=== PATIENT | female | born 1960 | race American Indian/Alaskan Native ===

== ENCOUNTER 2019-09-22 09:29 | Outpatient (CLI) | payer BC ==
--- NOTE | 2019-09-25 11:03 | Mammography Report ---
DIGITAL SCREENING MAMMOGRAM WITH CAD, 09/22/2019 INDICATION: Routine screening mammography. TECHNIQUE: Digital bilateral 2D mammography was obtained in the craniocaudal and mediolateral obliq ue projections. This examination was interpreted with the benefit of Computer-Aided Detection analysi s. COMPARISON: None available. However, she indicated that she had a prior mammogram at [facility]. FINDINGS: Breast Density: The breasts are heterogeneously dense, which may obscure small masses. Bilateral parenchymal asymmetries require comparison with the prior mammogram or additional imaging. No architectural distortion or suspicious calcifications. IMPRESSION: Comparison with the previous mammogram is recommended. We will attempt to obtain a prior mammogram for comparison. If we do not obtain a prior mammogram within 30 days, a revised report will be issued recommending a recall for additional imaging. Please be advised that the patient should no t schedule an appointment for return until adequate time (at least 2 weeks) has passed for us to obta in the prior mammogram. Follow up recommendation: Obtain prior study for comparison Category 0: Incomplete. Needs additional imaging evaluation and/or prior mammograms for comparison. A "normal" or negative report should not discourage follow up or biopsy of a clinically significant f inding. A written summary of these findings will be mailed to the patient. The patient will be entered into a mammography reporting system which will generate a reminder letter for the patient's next appointmen t at the appropriate interval. The [employer] recommends yearly mammograms starting at age 40 and continuing as l derek as a woman is in good health. Breast MRI is recommended for women with an approximate 20-25% or greater lifetime risk of breast cancer, including women with a strong family history of breast or ova jazmin cancer or who have been treated for Hodgkin's disease. Signer Name: Mikael Gould MD Signed: 09/25/2019 10:58 AM Workstation Name: [id number]
== END 2019-09-22 09:30 | disposition home or self-care (01) ==
LOC: MAMMO 09:29
PROVIDERS: ATTEND Internal Medicine
DX: Z12.31 Encounter for screening mammogram for malignant neoplasm of breast (principal)
CPT/HCPCS: 77067

== ENCOUNTER 2019-10-16 12:42 | Emergency (ER) | payer BC ==
--- NOTE | 2019-10-16 13:32 | Event Note ---
ED Screening Note ED Screening Note: substernal CP that began yesterday states that it is intermittent, sharp pain no cough no nausea, vomiting no fever no SOB PMHx HTN, depression allergy: nyquil former smoker This initial assessment/diagnostic orders/clinical plan/treatment(s) is/are subject to change based on patients health status, clinical progression and re- assessment by fellow clinical providers in the ED. Further treatment and workup at subsequent clinical providers discretion. Patient/guardian urged not to elope from the ED as their condition may be serious if not clinically assessed and managed. Initial orders include: CP protocol
[2019-10-16 14:34] LABS: Basophils % (Auto) 0.5 % (0.0-1.8); Eosinophils # (Auto) 0.1 K/mm3 (0.0-0.4); Eosinophils % (Auto) 1.3 % (0.0-4.3); Hematocrit 41.3 % (30.3-42.9); Hemoglobin 13.4 gm/dl (10.1-14.3); Lymphocytes # (Auto) 2.4 K/mm3 (1.2-5.4); Mean Corpuscular HGB Conc 33 % (30-34); Mean Corpuscular Volume 83 fl (79-97); Monocytes # (Auto) 0.7 K/mm3 (0.0-0.8); Platelet Count 349 K/mm3 (140-440); Red Blood Count 4.99 M/mm3 (3.65-5.03); Red Cell Distribution Width 15.7 % (13.2-15.2)
--- NOTE | 2019-10-16 14:42 | XRay Report ---
CHEST 2 VIEWS INDICATION / CLINICAL INFORMATION: CP. COMPARISON: 07/24/2018 FINDINGS: SUPPORT DEVICES: None. HEART / MEDIASTINUM: No significant abnormality. LUNGS / PLEURA: No significant pulmonary or pleural abnormality. .No pneumothorax. ADDITIONAL FINDINGS: No significant additional findings. IMPRESSION: 1. No acute findings. Signer Name: Deacon Felix MD Signed: 10/16/2019 2:37 PM Workstation Name: [id number]
[2019-10-16 14:53] LABS: Alanine Aminotransferase 24 units/L (7-56); Albumin 4.5 g/dL (3.9-5); BUN/Creatinine Ratio 19; Blood Urea Nitrogen 15 mg/dL (7-17); Calcium 9.8 mg/dL (8.4-10.2); Hemolysis Index 41
--- NOTE | 2019-10-16 14:57 | Emergency Department Report ---
ED Chest Pain HPI - General Chief Complaint: Chest Pain Stated Complaint: CHEST PAIN Time Seen by Provider: 10/16/19 13:29 Source: patient Mode of arrival: Ambulatory Limitations: No Limitations - History of Present Illness Initial Comments: 58 yo female woke with chest pain started this morning at 8:30 AM. Midsternal chest pain non radiating. Denies nausea,vomiting, and diaphoresis. She's had hx of chest pain x 1 month. Stress test done on 10/09/19. MD Complaint: chest pain -: Sudden, hour(s) (at 8:30 am) Onset: awoke with symptoms Pain Location: substernal Pain Radiation: none Severity: mild Severity scale (0 -10): 3 Quality: sharp Consistency: intermittent Improves With: other (aspirin 325 mg) Worsens With: nothing re: denies: nausea, vomting, diaphoresis, dyspnea, sense of impending doom Other Symptoms: denies: cough, leg swelling, palpitations Treatments Prior to Arrival: aspirin Aspirin use within the Past 7 Days: (1) Yes (daily aspirin 325 mg) - Related Data On Oral Contraceptives: No Home Medications Medication Instructions Recorded Confirmed Last Taken Verapamil ER [Calan Sr] 240 mg PO QDAY 07/26/18 07/26/18 Unknown Previous Rx's Medication Instructions Recorded Last Taken Type Aspirin 325 mg PO QDAY #30 tablet 07/26/18 Unknown Rx AtorvaSTATin [Lipitor] 40 mg PO QHS #30 tablet 07/26/18 Unknown Rx Butalb/Acetamin/Caff 50-325-40 1 tab PO Q4H PRN #30 tablet 07/26/18 Unknown Rx [Fioricet 50-325-40] Famotidine [Pepcid] 20 mg PO BID #60 tablet 07/26/18 Unknown Rx oxyCODONE /ACETAMINOPHEN [Percocet 1 tab PO Q6H PRN #12 tablet 07/26/18 Unknown Rx 5/325 mg] Allergies Allergy/AdvReac Type Severity Reaction Status Date / Time acetaminophen [From NyQuil] Allergy Anaphylaxis Verified 10/16/19 13:32 dextromethorphan Allergy Anaphylaxis Verified 10/16/19 13:32 [From NyQuil] doxylamine [From NyQuil] Allergy Anaphylaxis Verified 10/16/19 13:32 pseudoephedrine [From NyQuil] Allergy Anaphylaxis Verified 10/16/19 13:32 BROMINE Allergy Anaphylaxis Uncoded 10/16/19 12:45 Heart Score - HEART Score History: Slightly suspicious EKG: Normal Age: 45-65 Risk factors: 1-2 risk factors Troponin: 1-3x normal limit HEART Score: 3 - Critical Actions Critical Actions: 0-3 pts:0.9-1.7%risk of adverse cardiac event.Candidate for discharge ED Review of Systems ROS: Stated complaint: CHEST PAIN Other details as noted in HPI Comment: All other systems reviewed and negative Respiratory: no symptoms reported. denies: shortness of breath Cardiovascular: chest pain. denies: palpitations, dyspnea on exertion, orthopnea, syncope ED Past Medical Hx - Past Medical History Hx Hypertension: Yes Hx Congestive Heart Failure: No Hx Diabetes: No Hx Headaches / Migraines: Yes Hx Asthma: No Hx COPD: No Hx HIV: No - Surgical History Additional Surgical History: hernia repair,laprosccopy - Social History Smoking Status: Former Smoker Substance Use Type: Alcohol - Medications Home Medications: Home Medications Medication Instructions Recorded Confirmed Last Taken Type Aspirin 325 mg PO QDAY #30 tablet 07/26/18 Unknown Rx AtorvaSTATin [Lipitor] 40 mg PO QHS #30 tablet 07/26/18 Unknown Rx Butalb/Acetamin/Caff 50-325-40 1 tab PO Q4H PRN #30 tablet 07/26/18 Unknown Rx [Fioricet 50-325-40] Famotidine [Pepcid] 20 mg PO BID #60 tablet 07/26/18 Unknown Rx Verapamil ER [Calan Sr] 240 mg PO QDAY 07/26/18 07/26/18 Unknown History oxyCODONE /ACETAMINOPHEN [Percocet 1 tab PO Q6H PRN #12 tablet 07/26/18 Unknown Rx 5/325 mg] ED Physical Exam - General Limitations: No Limitations General appearance: alert, in no apparent distress - Head Head exam: Present: normal inspection - Eye Eye exam: Present: normal appearance. Absent: scleral icterus, conjunctival injection - ENT ENT exam: Present: normal exam - Neck Neck exam: Present: normal inspection - Respiratory Respiratory exam: Present: normal lung sounds bilaterally. Absent: respiratory distress, wheezes, rales, chest wall tenderness - Cardiovascular Cardiovascular Exam: Present: regular rate, normal heart sounds - GI/Abdominal GI/Abdominal exam: Present: soft. Absent: distended, tenderness, guarding, rebound - Rectal Rectal exam: Absent: deferred - Extremities Exam Extremities exam: Present: normal inspection - Expanded Lower Extremity Exam Right Hip exam: Present: full ROM Lower Leg exam: Absent: tenderness, swelling Ankle exam: Absent: tenderness, swelling Neuro vascular tendon exam: Present: no vascular compromise Left Lower Leg exam: Present: full ROM. Absent: swelling - Back Exam Back exam: Present: normal inspection - Neurological Exam Neurological exam: Present: alert, oriented X3 - Psychiatric Psychiatric exam: Present: normal affect - Skin Skin exam: Present: warm, dry, intact, normal color. Absent: rash ED Course Vital Signs 10/16/19 10/16/19 10/16/19 12:25 12:47 15:06 Temperature 98.8 F Pulse Rate 76 Respiratory 18 18 Rate Blood Pressure 157/92 191/80 O2 Sat by Pulse 98 96 96 Oximetry 10/16/19 10/16/19 10/16/19 15:14 15:30 16:01 Temperature Pulse Rate 66 69 59 L Respiratory 11 L 7 L 9 L Rate Blood Pressure 163/97 122/94 159/74 O2 Sat by Pulse 100 98 Oximetry 10/16/19 10/16/19 10/16/19 16:30 17:00 18:00 Temperature Pulse Rate 67 63 58 L Respiratory 11 L 11 L 12 Rate Blood Pressure 159/74 151/74 147/74 O2 Sat by Pulse 100 100 96 Oximetry 10/16/19 18:29 Temperature 98.8 F Pulse Rate 58 L Respiratory 12 Rate Blood Pressure O2 Sat by Pulse 96 Oximetry - Reevaluation(s) Reevaluation #1: 10/16/19 16:24 Spoke with [facility] for [facility]. Per Maya if 2nd Troponion and repeat EKG is within normal limits ok to discharge patient with follow up in 1-2 weeks Reevaluation #2: 10/16/19 16:27 Pt with no complaints of chest pain or SOB. She is updated on her plan of care MIGUE score - Migue Score Age > 65: (0) No Aspirin use within the Past 7 Days: (1) Yes 3 or more CAD Risk Factors: (1) Yes 2 or more Angina events in past 24 hrs: (1) Yes Known CAD with more than 50% Stenosis: (0) No Elevated Cardiac Markers: (0) No ST Deviation Greater than 0.5mm: (0) No MIGUE Score: 3 ED Medical Decision Making - Lab Data Result diagrams: 10/16/19 13:56 10/16/19 13:56 - EKG Data When compared to previous EKG there are: no significant change Interpretation: normal EKG - Radiology Data Radiology results: report reviewed FINDINGS: SUPPORT DEVICES: None. HEART / MEDIASTINUM: No significant abnormality. LUNGS / PLEURA: No significant pulmonary or pleural abnormality. .No pne umothorax. ADDITIONAL FINDINGS: No significant additional findings. IMPRESSION: 1. No acute findings. - Medical Decision Making This is a 58-year-old -Chinese female she's had a history of chest pain off and on for one month. On October 09 she had a stress test done. This morning at 8:30 AM she developed mid-sternal chest pain non-radiating with no associated symptoms. Patient took one aspirin 325 mg. At time of examination pt was chest pain free. Steph brewster called spoke with Maya ROBERTSON. Troponin x 2 negative Repeat EKG with no acute changes Plan of care discussed with Dr. Pollard she agrees with plan of care. Pt discharge home to follow up with Steph Ruelas in 1-2 week Critical Care Time: No Critical care attestation.: If time is entered above; I have spent that time in minutes in the direct care of this critically ill patient, excluding procedure time. ED Disposition Clinical Impression: Chest pain at rest Disposition: -01 TO HOME OR SELFCARE Is pt being admited?: No Does the pt Need Aspirin: No Condition: Stable Instructions: Chest Pain (ED) Additional Instructions: Follow up with Steph Brewster in 1-2 week. Call [phone] tomorrow to schedule your appointment. Resume all home meds. Return to ER for any worsening chest pain and or SOB. Follow up with your doctor in 2-3 days Referrals: VERO PRICE MD [Primary Care Provider] - 3-5 Days Time of Disposition: 18:13
[2019-10-16 18:03] VITALS: BP 147/74
== END 2019-10-16 18:29 | disposition home or self-care (01) ==
LOC: ED 12:42
DX: R07.89 Other chest pain (principal); I10 Essential (primary) hypertension; G43.909 Migraine, unspecified, not intractable, without status migrainosus; Z87.891 Personal history of nicotine dependence; Z79.899 Other long term (current) drug therapy; Z88.6 Allergy status to analgesic agent; Z88.1 Allergy status to other antibiotic agents; Z88.8 Allergy status to other drugs, medicaments and biological substances; Z88.3 Allergy status to other anti-infective agents
CPT/HCPCS: 36415; 71046; 80053; 84484; 85025; 93005; 93010

== ENCOUNTER 2019-10-26 07:52 | Outpatient (CLI) | payer BC ==
[2019-10-26] MEDS ORDERED: REGADENOSON 0.4 MG/5 ML INJ IV ONE ×2 (09:57→10:19)
[2019-10-26 11:33] VITALS: BP 136/68
--- NOTE | 2019-10-27 21:51 | Treadmill Report ---
NUCLEAR PERFUSION SCAN REFERRING PHYSICIAN: Dr. Jose Raul Bae. PROTOCOL: The patient was brought to the stress lab in a postabsorptive state, given 10 mCi of technetium 99m at rest. The patient underwent rest imaging. The patient underwent Lexiscan stress test. At peak stress, the patient was given 26 mCi of technetium 99m. Shortly thereafter, the patient underwent stress imaging. Raw imaging reveals mild GI artifact, no significant motion artifact. SPECT images examined carefully in horizontal long axis, vertical long axis, short axis views. There is normal homogenous uptake of radioisotope in all reported segments. . There is a significant GI artifact which partially obscures the inferior wall. This is technically a very difficult study. No obvious evidence of significant ischemia but clinical correlation is warranted. Gated wall motion reveals normal systolic thickening, calculated ejection fraction of 58%. CONCLUSIONS: 1. Technically very difficult study as GI artifact obscuring the inferior wall. No obvious degree of ischemia or prior infarction, but suggests clinical correlation. The patient was rescanned 3 times due to technical difficulties. 2. Preserved LV function without evidence of transient ischemic dilatation or stress-induced segmental wall motion abnormalities. JOB# [id number] JASON/PINEDA
== END 2019-10-26 07:53 | disposition home or self-care (01) ==
LOC: CARD 07:52
PROVIDERS: ATTEND Internal Medicine
DX: R07.9 Chest pain, unspecified (principal); I10 Essential (primary) hypertension; Z87.891 Personal history of nicotine dependence
CPT/HCPCS: 78452; 93017; A9502; J2785

== ENCOUNTER 2021-01-22 07:32 | Day surgery (SDC) | payer BC ==
[2021-01-22] MEDS ORDERED: ASPIRIN EC 325 MG TAB PO ONE (08:14)
[2021-01-22] MEDS ORDERED: SODIUM CHLORIDE 0.9% 500 ML 500 ML IV SCH (09:00)
[2021-01-22] MEDS ORDERED: HEPARIN/NS 5000 UNIT/500ML 1,000 ML IR ONE (09:31)
[2021-01-22] MEDS ORDERED: MIDAZOLAM 2 MG/2 ML INJ ONE (09:42)
[2021-01-22] MEDS ORDERED: fentaNYL 100 MCG/2 ML INJ ONE (09:42)
[2021-01-22] MEDS ORDERED: HEPARIN 10,000 UNITS/10 ML VIAL ONE (09:43)
[2021-01-22] MEDS ORDERED: LIDOCAINE (2%) 20 MG/1 ML VIAL 20 ML MDV INFILTRATI ONE ×2 (09:43→10:41)
[2021-01-22] MEDS ORDERED: VERAPAMIL 5 MG/2 ML INJ ONE (09:43)
[2021-01-22] MEDS ORDERED: PHENYLEPHRINE/NS 1,000 MCG/10 ML SYRINGE (OR USE) IV ONE (09:44)
[2021-01-22] MEDS ORDERED: NITROGLYCERIN DRIP 0 MG/0 ML BOTTLE ONE (09:44)
[2021-01-22] MEDS ORDERED: NITROGLYCERIN SYRINGE 0 ML ONE (09:49)
[2021-01-22] MEDS ORDERED: MIDAZOLAM 2 MG/2 ML INJ IV ONE ×2 (10:38→10:45)
[2021-01-22] MEDS ORDERED: fentaNYL 100 MCG/2 ML INJ IV ONE ×2 (10:38→10:46)
[2021-01-22] MEDS ORDERED: ATROPINE 0.1% (1 MG/10 ML) CARDIAC SYRINGE ONE (10:41)
[2021-01-22] MEDS ORDERED: VERAPAMIL 5 MG/2 ML INJ ART-SHEATH ONE (10:43)
[2021-01-22] MEDS ORDERED: HEPARIN 10,000 UNITS/10 ML VIAL IV ONE (10:44)
--- NOTE | 2021-01-22 12:01 | Cardiac Catherization Report ---
CARDIAC CATHETERIZATION REPORT INDICATION FOR PROCEDURE: A 60-year-old -[place] female with history of CHEST PAIN, hyperlipidemia, atypical chest pain with an inconclusive stress test performed in 2018, is scheduled for cardiac catheterization for definitive diagnosis and treatment. The patient is aware of the procedure, potential complications and alternatives of therapy available. DESCRIPTION OF PROCEDURE: The patient was brought to the catheterization laboratory in a fasting condition. The patient was prepared in a standard fashion. The patient was evaluated for moderate sedation and was felt to be appropriate candidate for moderate sedation and received IV Versed and fentanyl. Subsequently, sterile drapes were applied. Local anesthesia was given in the right wrist area followed by accessing the right radial artery using a 21-gauge arterial puncture needle. A 5-Honduran slender sheath was introduced. The patient received 3000 units of intravenous heparin and 5 mg of intra-arterial verapamil. Subsequently, 5-Honduran multipurpose catheter was used to obtain the angiograms of the right coronary artery, left coronary artery in multiple views followed by left ventriculogram done in ESPINOZA projection using hand injection. At the end of the procedure, catheter and sheath were removed. Good hemostasis was achieved with radial band application. The patient was monitored throughout the procedure with EKG monitoring, pulse oximetry, and hemodynamic monitoring. The patient at the end of the procedure is able to breathe normally, communicate normally with no focal deficits. The patient's moderate sedation started at 10:38 a.m. and ended at 10:50 a.m. The patient was transferred to the room in stable condition. Findings were explained to the patient in detail. Following findings were noted: 1. Aortic pressure 170/62. Left ventricular pressure 145/15. No gradient across the aortic valve. Estimated ejection fraction 55%. 2. Left ventriculogram done in ESPINOZA projection using hand injection showed normal sized left ventricle with normal contractility. End-diastolic pressure is upper limits of normal around 15 mmHg. Mitral regurgitation could not be evaluated because of limited amount of dye injected. 3. Right coronary artery arises normally from right coronary cusp. It is mildly tortuous, but angiographically smooth and normal. Blood flow in the coronary arteries was found to be somewhat sluggish. 4. Left coronary artery disease arises normally from left coronary cusp. Left main is very short, immediately dividing into LAD and circumflex branches. LAD and its branches and circumflex artery and its branch are angiographically smooth and normal. Similar to the RCA, there is some slight sluggish flow of blood in the coronaries. FINAL IMPRESSION: 1. Normal sized left ventricle with normal contractility and normal end-diastolic pressure. 2. Angiographically normal coronary anatomy with sluggish flow. At this time, no obstructive coronary disease noted. Would continue aggressive risk factor modification. The patient tolerated the procedure well. No untoward complications noted. Good hemostasis was achieved with an application of radial band. [facility]# [id number] CARLTON/PINEDA MERA
[2021-01-22 13:01] VITALS: BP 112/49
== END 2021-01-22 13:40 | disposition home or self-care (01) ==
LOC: CATHLABREC 07:32
PROVIDERS: ATTEND Internal Medicine
DX: R07.89 Other chest pain (principal); I10 Essential (primary) hypertension; F32.9 Major depressive disorder, single episode, unspecified; F41.9 Anxiety disorder, unspecified; E78.01 Familial hypercholesterolemia; Z98.890 Other specified postprocedural states; Z79.899 Other long term (current) drug therapy; Z79.82 Long term (current) use of aspirin; Z88.8 Allergy status to other drugs, medicaments and biological substances; Z87.891 Personal history of nicotine dependence; Z83.3 Family history of diabetes mellitus; Z82.49 Family history of ischemic heart disease and other diseases of the circulatory system; Z86.73 Personal history of transient ischemic attack (TIA), and cerebral infarction without residual deficits
CPT/HCPCS: 93005; 93458; 99156; C1894; J1644; J2250; J3010; J7040; J0461; J2370; Q9967